=== PATIENT | female | born 1985 | race Caucasian/White ===

== ENCOUNTER 2019-12-30 16:36 | Emergency (ER) | payer SELFPAY ==
[2019-12-30] MEDS ORDERED: DOXYCYCLINE HYCLATE 100 MG TABLET PO ONE (19:38)
--- NOTE | 2019-12-30 19:44 | ER Document Report ---
ED General - General Chief Complaint: Insect Bite Stated Complaint: SKIN PROBLEM Time Seen by Provider: 12/30/19 18:55 Mode of Arrival: Ambulatory Information source: Patient TRAVEL OUTSIDE OF THE [place] IN LAST 30 DAYS: No - HPI Onset: Other - over the last several weeks Onset/Duration: Gradual Quality of pain: Burning Severity: Mild Pain Level: 1 Associated symptoms: Other - redness and itchiness of skin Exacerbated by: Denies Relieved by: Denies Similar symptoms previously: Yes - with Bed Bug bites Recently seen / treated by doctor: No Notes: 34 year old female with a history of Drug Abuse here in the ER for concern of diffuse bed bug bites. The patient says she has seen bed bugs in her house and now she has small wounds throughout her body which she thinks are from the bugs she has seen. The patient denies fevers, chills, sweats, pus drainage, abscess formation. Past Medical History - General Information source: Patient - Social History Smoking Status: Current Every Day Smoker Frequency of alcohol use: Rare Drug Abuse: Methamphetamine Lives with: Family Family History: Reviewed & Not Pertinent Patient has homicidal ideation: No Review of Systems - Review of Systems Constitutional: No symptoms reported EENT: No symptoms reported Cardiovascular: No symptoms reported Respiratory: No symptoms reported Gastrointestinal: No symptoms reported Genitourinary: No symptoms reported Female Genitourinary: No symptoms reported Musculoskeletal: No symptoms reported Skin: Other - diffuse insect bites with scabs and some with surrounding redness Hematologic/Lymphatic: No symptoms reported Neurological/Psychological: No symptoms reported -: Yes All other systems reviewed and negative Physical Exam - Vital signs Vitals: Temp 98.7 F 12/30/19 16:37 - Notes Notes: GENERAL: Poorly groomed but well-appearing, well-nourished and in no acute distress. HEAD: Atraumatic, normocephalic. EYES: Pupils equal round and reactive to light, extraocular movements intact, sclera anicteric, conjunctiva are normal. ENT: External ears normal, nares patent, Moist mucous membranes. NECK: Normal range of motion, supple without lymphadenopathy or JVD. LUNGS: Breath sounds clear to auscultation bilaterally and equal. No wheezes rales or rhonchi. HEART: Regular rate and rhythm without murmurs, rubs or gallops. ABDOMEN: Soft, nontender, normoactive bowel sounds. No guarding, no rebound. No masses appreciated. EXTREMITIES: Normal range of motion, no pitting or edema. No clubbing or cyanosis. NEUROLOGICAL: No focal deficits. Normal speech, normal gait. PSYCH: Normal mood, normal affect. SKIN: Diffuse (whole body) scabbed over areas (some with surrounding erythema) which look like insect bite manzano. No abscesses identified. Warm, Dry, normal turgor, no rashes or lesions noted. Course - Re-evaluation Re-evalutation: 12/30/19 19:53 The patient seems to have inset bites all over body. Some appear possibly superficially infected. Patient also looks like she could be colonized ith MRSA given the diffuse nature of her skin wounds. Patient told to use Hibiclens, she was prescribed Doxycycline and she was told to wash all her cloths and bedding in very hot water and dry them at very hot temperatures. Patient also told to have an machine castings plasterer or fumigate her home. - Vital Signs Vital signs: Temp Pulse Resp BP Pulse Ox 98.7 F 63 18 131/58 H 100 12/30/19 16:37 12/30/19 16:50 12/30/19 16:50 12/30/19 16:50 12/30/19 16:50 Discharge - Discharge Clinical Impression: Bed bug bite Qualifiers: Encounter type: initial encounter Qualified Code(s): W57.XXXA - Bitten or stung by nonvenomous insect and other nonvenomous arthropods, initial encounter Cellulitis Qualifiers: Site of cellulitis: unspecified site Qualified Code(s): L03.90 - Cellulitis, unspecified Condition: Stable Disposition: HOME, SELF-CARE Instructions: Insect Bites ([facility]), MRSA Cellulitis ([facility]) Additional Instructions: Take Doxycycline (an oral antibiotic) as prescribed. Also use over the counter antibiotic ointment on your insect bites. Buy Hibiclens at a local pharmacy and use this 2 times a day for 3 days to clean your skin. Fumigate your home and wash all your cloths and bedding in very hot water and dry them at very hot temperatures to help kill any potential insects in your home. Prescriptions: Doxycycline Monohydrate 100 mg PO BID #20 capsule
[2019-12-30 20:27] VITALS: BP 128/88
== END 2019-12-30 20:27 | disposition home or self-care (01) ==
LOC: ER 16:36
DX: L03.90 Cellulitis, unspecified (principal); T14.8XXA Other injury of unspecified body region, initial encounter; W57.XXXA Bitten or stung by nonvenomous insect and other nonvenomous arthropods, initial encounter; Y92.009 Unspecified place in unspecified non-institutional (private) residence as the place of occurrence of the external cause; F15.10 Other stimulant abuse, uncomplicated; F17.200 Nicotine dependence, unspecified, uncomplicated
CPT/HCPCS: 99281